=== PATIENT | female | born 1990 | race American Indian/Alaskan Native ===

== ENCOUNTER 2018-03-04 20:38 | Emergency (ER) | payer MEDICAID ==
[2018-03-04 21:25] VITALS: BP 154/88
[2018-03-04 21:49] LABS: Basophils % (Auto) 0.9 % (0.0-1.8); Eosinophils % (Auto) 0.7 % (0.0-4.3); Hematocrit 38.7 % (30.3-42.9); Lymphocytes # (Auto) 1.5 K/mm3 (1.2-5.4); Lymphocytes % (Auto) 41.8 % (13.4-35.0); Mean Corpuscular HGB Conc 34 % (30-34); Mean Corpuscular Hemoglobin 29 pg (28-32); Mean Corpuscular Volume 85 fl (79-97); Monocytes # (Auto) 0.5 K/mm3 (0.0-0.8); Monocytes % (Auto) 13.1 % (0.0-7.3); Platelet Count 287 K/mm3 (140-440); Red Blood Count 4.55 M/mm3 (3.65-5.03); Red Cell Distribution Width 13.5 % (13.2-15.2)
[2018-03-04 22:06] LABS: Alanine Aminotransferase 14 units/L (7-56); Albumin 4.2 g/dL (3.9-5); BUN/Creatinine Ratio 8; Blood Urea Nitrogen 5 mg/dL (7-17); Calcium 9.4 mg/dL (8.4-10.2); Hemolysis Index 7
[2018-03-05] MEDS ORDERED: MORPHINE IM ONE (03:43)
[2018-03-05] MEDS ORDERED: ZOFRAN IM ONE (03:43)
--- NOTE | 2018-03-05 03:48 | Emergency Department Report ---
ED General Adult HPI - General Chief complaint: Pain General Stated complaint: BODY PAIN Source: patient Mode of arrival: Ambulatory Limitations: No Limitations - History of Present Illness Initial comments: Patient had Kishor 27 years old female history of multiple sclerosis. Patient followed by [place] neurologist. Patient presented with generalized body pain for the last 3-4 days. Patient denied any fever, weakness, numbness or tingling sensation. She denied any cough or shortness of breath. No urinary symptoms. - Related Data Allergies Allergy/AdvReac Type Severity Reaction Status Date / Time mushroom Allergy Itching Verified 03/04/18 21:26 peanut Allergy Itching Verified 03/04/18 21:25 shellfish derived Allergy Itching Verified 03/04/18 21:25 ED Review of Systems ROS: Stated complaint: BODY PAIN Other details as noted in HPI Comment: All other systems reviewed and negative Constitutional: denies: chills, fever Cardiovascular: denies: chest pain, palpitations, dyspnea on exertion, orthopnea , edema Gastrointestinal: denies: abdominal pain, nausea, vomiting, diarrhea, constipation, hematemesis, hematochezia Genitourinary: denies: hematuria Musculoskeletal: back pain, arthralgia, myalgia Skin: denies: rash, lesions Neurological: denies: headache, weakness, numbness, paresthesias, confusion, abnormal gait, vertigo ED Past Medical Hx - Past Medical History Previous Medical History?: Yes Additional medical history: MS - Surgical History Past Surgical History?: Yes Additional Surgical History: c seciton x2, gallbladder removal - Social History Smoking Status: Never Smoker Substance Use Type: None ED Physical Exam - General Limitations: No Limitations General appearance: alert, in no apparent distress - Head Head exam: Present: atraumatic, normocephalic, normal inspection - Eye Eye exam: Present: normal appearance - ENT ENT exam: Present: normal exam - Neck Neck exam: Present: normal inspection, full ROM. Absent: tenderness, meningismus, lymphadenopathy, thyromegaly - Respiratory Respiratory exam: Present: normal lung sounds bilaterally. Absent: respiratory distress, wheezes, rales, rhonchi, stridor, chest wall tenderness, accessory muscle use, decreased breath sounds, prolonged expiratory - Cardiovascular Cardiovascular Exam: Present: regular rate, normal rhythm, normal heart sounds - GI/Abdominal GI/Abdominal exam: Present: soft, normal bowel sounds. Absent: distended, tenderness, guarding, rebound, rigid, organomegaly, mass, bruit, pulsatile mass , hernia - Extremities Exam Extremities exam: Present: normal inspection, full ROM, normal capillary refill. Absent: tenderness, pedal edema, joint swelling, calf tenderness - Back Exam Back exam: Present: normal inspection, full ROM. Absent: tenderness, CVA tenderness (R), CVA tenderness (L), muscle spasm, paraspinal tenderness, vertebral tenderness, rash noted - Neurological Exam Neurological exam: Present: alert, oriented X3, CN II-XII intact, normal gait, reflexes normal - Skin Skin exam: Present: warm, intact, normal color ED Course Vital Signs 03/04/18 21:22 Temperature 98.2 F Pulse Rate 68 Respiratory 17 Rate Blood Pressure 154/88 O2 Sat by Pulse 99 Oximetry ED Medical Decision Making - Lab Data Result diagrams: 03/04/18 21:33 03/04/18 21:33 - Medical Decision Making I advised the patient to follow up with her neurologist at [place] in the next 2- 3 days. Critical care attestation.: If time is entered above; I have spent that time in minutes in the direct care of this critically ill patient, excluding procedure time. ED Disposition Clinical Impression: Complaints of total body pain, History of multiple sclerosis Disposition: -01 TO HOME OR SELFCARE Is pt being admited?: No Condition: Stable Instructions: Low Back Strain (ED) Referrals: PRIMARY CARE, [Primary Care Provider] - 3-5 Days
== END 2018-03-05 04:49 | disposition home or self-care (01) ==
LOC: ED 20:38
DX: M79.1 Myalgia (principal); Z91.010 Allergy to peanuts; Z91.013 Allergy to seafood
CPT/HCPCS: 36415; 80053; 85025; 96372; 99282; J2270; J2405; J2930